=== PATIENT | male | born 1995 | race Caucasian/White ===

== ENCOUNTER 2020-09-30 13:40 | Emergency (ER) | payer OTHER, SELFPAY ==
--- NOTE | ~2020-09-30 | XR_ITS ---
EXAMINATION: XR ANKLE, LEFT CLINICAL INFORMATION: Posterior ankle injury COMPARISON: None TECHNIQUE: AP, lateral, and mortise views of the left ankle. FINDINGS: No radiographic evidence of acute fracture subluxation. The ankle mortise is congruent. Alignment is anatomic. The joint spaces are maintained. Significant soft tissue swelling of the posterior aspect of the lower leg at the level of the distal tibia diaphysis. XR/XR ankle LT min 3V IMPRESSION: No radiographic evidence of acute fracture subluxation. Soft tissue swelling of the soft tissues posterior to the lower leg/ankle.
[2020-09-30 13:43] VITALS: BP 156/77; PULSE 86; RESP 18; TEMP 36.6; O2SAT 98; BMI 33.4
--- NOTE | 2020-09-30 15:11 | ED_ITS ---
HPI - Extremity Injury (Lower) General Chief Complaint: Extremity Injury, Lower Stated Complaint: L FOOT INJ Time Seen by Provider: 09/30/20 14:39 History of Present Illness HPI Narrative: Patient complains of pain over left posterior ankle and Achilles area after playing ball jumping up and down and feeling a pop and sharp pain in the back of his ankle, this happened 2 weeks ago and he has been walking on it since but pain has not been relieved any comes to the ER to get it checked, denies numbness weakness or tingling, no other injury Related Data Previous Rx's Medication Instructions Recorded ibuprofen 600 mg PO Q6H PRN #20 tab 09/30/20 Allergies Allergy/AdvReac Type Severity Reaction Status Date / Time No Known Allergies Allergy Unverified 02/17/20 16:37 Review of Systems Review of Systems: Positive for pain over posterior left ankle Negatives are no dizziness no weakness no headache no chest pain no numbness weakness or tingling no back or neck pain Yes all other systems are reviewed and are negative [facility] Past Medical History Source: nursing notes reviewed Medical History (Updated 09/30/20 @ 15:21 by JASON Aranda) Asthma Social History Social History Advance Directives: No Advance Directives Information Provided: Yes Physical Exam Vital Signs: Vital Signs: Last Vital Signs Temp 97.8 F 09/30/20 13:43 Pulse 86 09/30/20 13:43 Resp 18 09/30/20 13:43 BP 156/77 H 09/30/20 13:43 Pulse Ox 98 09/30/20 13:43 Body Mass Index 33.4 General appearance no acute distress Head is normocephalic atraumatic Neck is supple Respiratory no distress Extremities the left posterior ankle has a palpable defect over the Achilles tendon, patient is able to flex and extend at the ankle joint, Odom test is positive with a normal reflex on the right side and no reflex on the left side Course Course Course Narrative: X-ray did not reveal any obvious fracture, it did show soft tissue swelling over posterior ankle Case was discussed with orthopedic physician physician assistant primary care who will see the patient in the office on Friday and patient was given a boot and crutches and advised nonweightbearing until evaluated by orthopedics Discharge Plan Discharge Clinical Impression: Partial tear of left Achilles tendon Qualifiers: Encounter type: initial encounter Qualified Code(s): S86.012A - Strain of left Achilles tendon, initial encounter Patient Disposition: Home, Self-Care Additional Instructions: I spoke to orthopedic physician physician assistant primary care venessa momin who said she will call you to give you a time for an appointment Friday You should be seen in 2 days, Friday for consideration for possible surgery in orthopedic office If you do call the office make sure you tell them that this was discussed with physician physician assistant primary care merrill who wants to see You this FridayOctober 02 Prescriptions: New ibuprofen 600 mg tablet 600 mg PO Q6H PRN (Reason: pain) Qty: 20 RF: 0 Referrals: Nelson Momin PA-C [Physician Publications Distribution Clerk] - 2 days (Left Achilles tendon tear)
== END 2020-09-30 15:35 | disposition home or self-care (01) ==
PROVIDERS: Emergency Provider Emergency Medicine
DX: S86.012A Strain of left Achilles tendon, initial encounter (principal); M25.572 Pain in left ankle and joints of left foot; Y33.XXXA Other specified events, undetermined intent, initial encounter; Y93.9 Activity, unspecified; Y92.9 Unspecified place or not applicable; Y99.8 Other external cause status
CPT/HCPCS: 73610; 99283

== ENCOUNTER → 2020-10-02 12:18 | Outpatient (BNVA) | payer OTHER, SELFPAY | PROVIDERS: Visit Provider Physician Assistant ==

== ENCOUNTER 2020-10-04 11:56 | Day surgery (SDC) | payer OTHER, SELFPAY ==
--- NOTE | 2020-10-03 09:45 | HO.ANESPROP2 ---
Documented by User: Laura Marcano 10/03/20 09:46 HPI - Anesthesia Eval Consult details Narrative: 24yo M for Left Achilles Tendon Repair PMFSH Active Problems Active Problems: All Active Problems (Updated 10/02/20 @ 20:56 by Nelson Hauser PA-C) Achilles tendon rupture (Acute) Past Medical History Medical History Asthma Social History Social History Alcohol intake: never Smoking Status: Never smoker Use of substances other than those prescribed or required for medical reasons: Yes Substance Use Frequency: Daily Are you DNR?: No Advance Directives: No Advance Directives Information Provided: Yes Gender identity: male Meds Allergies Allergy/AdvReac Type Severity Reaction Status Date / Time No Known Allergies Allergy Verified 10/04/20 12:12 Exam Exam Date and Time: October 03, [id number] Assessment and Plan Assessment Anesthesia Assessment: Chart Reviewed Documented by User: Kinjal Stack 10/04/20 12:56 PMFSH Past Medical History Medical History Asthma Social History Social History Alcohol intake: never Smoking Status: Never smoker Use of substances other than those prescribed or required for medical reasons: Yes Substance Use Frequency: Daily Are you DNR?: No Advance Directives: No Advance Directives Information Provided: Yes Gender identity: male Meds Allergies Allergy/AdvReac Type Severity Reaction Status Date / Time No Known Allergies Allergy Verified 10/04/20 12:12 Exam Airway Mallampati Class: II TM Dist: >3cm Neck ROM: Full Assessment and Plan Assessment Anesthesia Assessment: Anesthesia Plan Discussed and Chart Reviewed Final Anesthetic Review NPO: Yes ASA Class: I Final Preanesthetic Review: No Changes in Pt Med Stat, Meds/Allgs Chart Reviewed, Consent Obtained/Reviewed and Anes Risks/Benef Reviewed Patient Risk: Low Procedure Risk: Low Assessment/Block/Sedation in SS: Assess/Block/Sedation-SS Anesthetic Plan Anesthetic Plan: GA and Regional Block Disposition: Standard PACU
[2020-10-04] VITALS (9 sets, daily range): BP systolic 109–154; BP diastolic 71–100; PULSE 78–108; RESP 16–20; TEMP 36.3–36.6; O2SAT 96–99; BMI 33.4
--- NOTE | 2020-10-04 11:56 | MHC.SHP ---
Pre-Procedural Eval Section A The patient is an INPATIENT: No Changes since office visit: No Cold of Flu in the past 2 weeks, No New Medical Problems, No Changes in Medication and No Patient answered all questions The History & Physical has been completed within 30 days and I have reviewed it.: Yes Section B Chief Complaint: left achilles tendon Allergies: Allergies Allergy/AdvReac Type Severity Reaction Status Date / Time No Known Allergies Allergy Unverified 10/02/20 12:31 Plan I have reviewed the history and physical and performed a pertinent physical examination on my patient. No changes have occurred unless specified.
--- NOTE | 2020-10-04 12:57 | P.CONAN_ITS ---
[facility] Active Problems Active Problems: All Active Problems (Updated 10/02/20 @ 20:56 by Nelson Hauser PA-C) Achilles tendon rupture (Acute) Past Medical History Medical History Asthma Social History Social History Alcohol intake: never Smoking Status: Never smoker Use of substances other than those prescribed or required for medical reasons: Yes Substance Use Frequency: Daily Are you DNR?: No Advance Directives: No Advance Directives Information Provided: Yes Gender identity: male Meds Allergies Allergy/AdvReac Type Severity Reaction Status Date / Time No Known Allergies Allergy Verified 10/04/20 12:12 Active Medications: Current Medications Generic Name Dose Route Start Last Admin Trade Name Freq PRN Reason Stop Dose Admin Lactated Ringer's 1,000 mls @ 100 mls/hr 10/04/20 12:15 Lr IVCONT .Q10H EHSAN Exam Exam Date and Time: October 04, 2020 1257 Height,Weight and Vital Signs: Height 5 ft 8 in Weight 220 kg Last Vital Signs Temp 97.9 F 10/04/20 12:34 Pulse 89 10/04/20 12:34 Resp 16 10/04/20 12:34 BP 133/80 10/04/20 12:34 Pulse Ox 96 10/04/20 12:34 Assessment and Plan Assessment Anesthesia Assessment: Anesthesia Plan Discussed and Chart Reviewed Final Anesthetic Review NPO: Yes ASA Class: I Final Preanesthetic Review: No Changes in Pt Med Stat, Meds/Allgs Chart Reviewed, Consent Obtained/Reviewed and Anes Risks/Benef Reviewed Patient Risk: Low Procedure Risk: Low Assessment/Block/Sedation in SS: Assess/Block/Sedation-SS Anesthetic Plan Anesthetic Plan: GA and Regional Block Disposition: Standard PACU
[2020-10-04] MEDS: Lactated Ringers 1,000 ML 100 ML IVCONT (13:02)
[2020-10-04] MEDS: fentaNYL citrate/PF 100 MCG/2 ML VIAL 50 MCG IVPUSH ×2 (15:18→15:23)
[2020-10-04] MEDS: Acetaminophen 325 MG TABLET 650 MG PO (15:18)
[2020-10-04] MEDS: oxyCODONE HCl Immed Release 5 MG TABLET PO (15:18)
--- NOTE | 2020-10-05 10:18 | P.OP_ITS ---
Operative Note Operative Note Date of Service: 10/05/20 Narrative: OPERATIVE PROCEDURE NOTE SURGEON: Dr. Gomes (Jovana) Instrum [employer] DEVELOPER: Eva Kitchen PAC PREOP DIAGNOSIS: Left Achilles tendon rupture POSTOP DIAGNOSIS: Same OPERATIVE PROCEDURE: LEFT ACHILLES TENDON REPAIR CLINICAL NOTE: This young man comes in today in regards to his left Achilles tendon. He injured it playing basketball over 2 weeks ago. He initially did not seek any medical attention. He decided he would read up on it . However subsequently he did present where the above noted injury was found. Therefore after explaining risks benefits and alternatives and answering all his questions it was mutually agreed upon to carry the following procedure OPERATIVE PROCEDURE Under a regional and general anesthetic the patient was initially supine and then rolled into the prone position. The left leg had a pneumatic tourniquet cuff placed around the upper left thigh which was inflated to 300 mm of mercury at the beginning of the case. The left foot and ankle was then prepped and draped in standard fashion. Surgical time-out was then performed. The patient is identified. procedure confirmed. Site confirmed. Medical and allergy history was reviewed. Preoperative antibiotics was given. Standard DVT prophylaxis was in place. All other items discussed and agreed upon. Standard posterior approach to the Achilles tendon was carried out. This was carried down through subcutaneous tissues with hemostasis achieved along the way using electrocautery. The peretenon was divided. The rupture was identified. It occurred the lower segment. Proximally the tendon was identified. It was scarred down. It had to be released significantly in order to try to bring the ends together. There was some shortening already. Both ends then had a 2. FiberWire suture weaved through it in a Bunnel fashion. Two suture ends were available on both the proximal and distal portions. With the foot in plantar flexion the matching Andreina's were tied together securely. This brought the tendon together. However there was tension in the repair and the foot remained at approximately 10-15 degrees of plantar flexion. Following this multiple#1 Dexon sutures were used to reinforce the repair. At this point it had been successfully repaired and therefore proceeded to closure. Wound was thoroughly irrigated. Peretenon and skin were approximated using 2-0 polysorb. The skin was closed with subcuticular V lock suture. Dermabond Steri-Strips to use. A sterile dressing was then applied. The tourniquet was let down total tourniquet time of 45 minutes. The foot was then placed in a below knee nonweightbearing cast with the foot at the resting plantar flexed position. Intraoperatively there was less than 10 cc blood loss no intraop transfusions complications.
== END 2020-10-04 16:15 | disposition home or self-care (01) ==
PROVIDERS: Visit Provider Orthopaedic Surgery
PROC: (CPT 27650; principal; 2020-10-04 13:40)
DX: S86.012A Strain of left Achilles tendon, initial encounter (principal); X58.XXXA Exposure to other specified factors, initial encounter; Y93.67 Activity, basketball; Y92.9 Unspecified place or not applicable; Y99.8 Other external cause status
CPT/HCPCS: 27650; J0690; J1885; J2250; J3010

== ENCOUNTER → 2020-10-13 13:02 | Outpatient (BNVA) | payer OTHER, SELFPAY | PROVIDERS: Visit Provider Physician Assistant ==

== ENCOUNTER → 2020-11-08 13:59 | Outpatient (BNVA) | payer OTHER, SELFPAY | PROVIDERS: Visit Provider Physician Assistant ==

== ENCOUNTER → 2021-01-02 12:42 | Outpatient (BNVA) | payer OTHER, SELFPAY | PROVIDERS: Visit Provider Orthopaedic Surgery | DX: Z98.890 Other specified postprocedural states (principal) | CPT/HCPCS: 99212 ==

== ENCOUNTER 2021-02-24 02:52 | Emergency (ER) | payer OTHER, SELFPAY ==
[2021-02-24 03:44] VITALS: BP 111/60; PULSE 116; RESP 16; TEMP 36.1; O2SAT 99; BMI 34.2
[2021-02-24 05:24] VITALS: BP 129/71; PULSE 87; RESP 18; TEMP 36.8; O2SAT 97
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
[2021-02-24 07:24] VITALS: BP 146/83; PULSE 78; RESP 16; TEMP 36.8; O2SAT 98
== END 2021-02-24 07:32 | disposition home or self-care (01) ==
PROVIDERS: Emergency Provider Emergency Medicine Emergency Medical Services
DX: S00.93XA Contusion of unspecified part of head, initial encounter (principal); G44.309 Post-traumatic headache, unspecified, not intractable; Y04.8XXA Assault by other bodily force, initial encounter; Y93.9 Activity, unspecified; Y92.410 Unspecified street and highway as the place of occurrence of the external cause; Y99.9 Unspecified external cause status; Z79.899 Other long term (current) drug therapy
CPT/HCPCS: 99283; 99284

== ENCOUNTER 2022-03-15 13:10 | Emergency (ER) | payer OTHER, SELFPAY ==
[2022-03-15 14:59] VITALS: BP 150/82; PULSE 113; RESP 18; TEMP 39.4; O2SAT 95; BMI 34.2
[2022-03-15] MEDS: Acetaminophen 325 MG TABLET 650 MG PO (15:04)
[2022-03-15 15:30] LABS: COVID-19 Test Negative (Negative); IDNOW Serial# 16C4AD1C; Influenza A Negative (Negative); Influenza B2 Negative (Negative)
[2022-03-15 16:09] VITALS: BP 119/73; PULSE 104; RESP 18; TEMP 37.7; O2SAT 95
--- NOTE | 2022-03-15 16:45 | ED.GENADULT ---
HPI - General Adult General Chief complaint: Fever Stated complaint: fever for few days Time Seen by Provider: 03/15/22 16:45 Source: patient Mode of arrival: ambulatory Limitations: no limitations History of Present Illness HPI narrative: Patient is a 26 year old assigned male at with no reported medical history presenting to the emergency department today with a cough and feeling generally unwell. Patient states that for the last couple days he has had a fever and a cough. Patient denies any dizziness, lightheadedness, abdominal pain, nausea, vomiting, chills, blurry vision, double vision, loss of vision, chest pain, difficulty breathing, shortness of breath, back pain, night sweats, pain with urination, increased urinary frequency, increased urinary urgency, blood in his urine or stool, syncope or a near syncopal episode, recent trauma or falls, bowel incontinence, bladder incontinence, bowel retention, bladder retention, or any other complaints at this time. Onset (ago): day(s) (2) Radiation: non-radiation Severity: mild Severity scale (1-10): 3 Relieving factors: none Exacerbating factors: none Associated symptoms: fever/chills Treatments prior to arrival: none Related Data Previous Rx's Medication Instructions Recorded ibuprofen 600 mg tablet 600 mg PO Q6H PRN pain #20 tabs 09/30/20 oxycodone-acetaminophen 5 mg-325 1 tab PO Q6H PRN pain 7 days #42 10/04/20 mg tablet (Percocet) tabs penicillin V potassium 500 mg 500 mg PO BID 10 days #20 tabs 03/15/22 tablet Allergies Allergy/AdvReac Type Severity Reaction Status Date / Time No Known Allergies Allergy Verified 03/15/22 14:57 Review of Systems Constitutional: Constitutional: Reports no additional constitutional complaints, Denies chills, Reports fever(s) and Denies night sweats Eyes: Eyes: Reports no additional eye complaints, Denies blurry vision, Denies change in vision, Denies diplopia, Denies eye discharge, Denies loss of vision and Denies eye pain ENT: Denies dizziness Cardiovascular: Cardiovascular: Reports no additional cardiovascular complaints, Denies chest pain, Denies lightheadedness, Denies Loss of Consciousness and Denies dyspnea Respiratory: Respiratory: Reports no additional respiratory complaints, Reports cough and Denies dyspnea Gastrointestinal: Gastrointestinal: Reports no additional gastrointestinal complaints, Denies abdominal pain, Denies melena, Denies hematochezia, Denies change in bowel habits and Denies change in stool character Genitourinary: Genitourinary: Reports no additional male genitourinary complaints, Denies hematuria, Denies oliguria, Denies difficulty urinating, Denies dysuria, Denies urinary frequency, Denies urinary hesitancy, Denies urinary incontinence and Denies urinary urgency Musculoskeletal: Musculoskeletal: Reports no additional musculoskeletal complaints, Denies numbness and Denies tingling Neurologic: Denies dizziness, Denies loss of vision, Denies numbness and Denies tingling Psychiatric: Psychiatric: Reports no additional psychiatric complaints Endocrine: Endocrine: Reports no additional endocrine complaints Hematologic/Lymphatic: Hematologic/Lymphatic: Reports no additional hematologic/lymphatic complaints Allergic/Immunologic: Allergic/Immunologic: Reports no additional allergic/immunologic complaints PMFSH Past Medical History Attestation statement: The following information was validated with the patient. Source: old records reviewed Medical History Asthma Social History Social History Alcohol intake: never Patient Tobacco Use Status: Never used Tobacco Advance Directives: No Advance Directives Information Provided: No Current occupational status: employed Current occupation: RT [employer] Gender identity: Male Physical Exam ED Vital Signs: Vital Signs - 24 hr 03/15/22 14:59 03/15/22 16:09 Temperature 102.9 F H 99.8 F Pulse Rate 113 H 104 H Respiratory Rate 18 18 Blood Pressure 150/82 H 119/73 Pulse Oximetry 95 95 Oxygen Delivery Method Room Air Room Air BMI result Body Mass Index 34.2 Const General: cooperative, no acute distress, alert and awake Nutritional Appearance: well nourished Orientation/consciousness: patient oriented x3 Limitations: no limitations HENMT Head: Yes normal to inspection and Yes atraumatic Ears: hearing grossly normal bilaterally and external ears normal General nose exam: Normal external nose present, no nasal discharge noted and no epistaxis Face and sinus: Yes normal facial exam, No abrasion and No laceration Mouth: Normal oral and palatal mucosa present, no drooling and no muffled voice Throat: Yes other (mild erythema to posterior pharynx) Eyes General: appearance normal, both eyes and all related structures Periorbital: periorbital findings normal Eyelids: Yes eyelids normal Conjunctivae: conjunctivae normal Pupils: Equal, round and reactive pupils present EOM: EOMs intact bilaterally Neck Neck: Yes normal visual inspection, Yes full ROM and Yes no lymphadenopathy Chest Chest palpation & inspection: normal inspection of the chest Resp Effort & Inspection: normal respiratory effort and able to speak in complete sentences Auscultation: clear to auscultation bilaterally Cardio Rate: regular rate Rhythm: regular rhythm GI Inspection: Yes normal to inspection Neuro General: patient oriented x3 and moves all extremities Cranial nerves: Yes Equal, round and reactive pupils present Cognition (Neuro): normal cognition Motor exam (neuro): 5/5 motor strength present throughout Sensory Exam: Normal double simultaneous stimulation for sensation Coordination: [id number] test normal Extrem General: Yes normal to inspection, Yes full ROM and Yes capillary refill normal Psych Appearance: grossly normal Mental Status: mental status grossly normal Affect: normal affect Attitude: cooperative Thought process: Normal thought process present Thought content: Normal thought content present Insight: Good insight present (Psych) Medical Decision Making [facility] Narrative Medical decision making narrative: Patient is a 26 year old assigned male at with no reported medical history presenting to the emergency department today with a fever and a cough. Patient's physical exam showed mild erythema of the posterior pharynx. Patient's COVID-19 test was positive. I explained my physical exam findings as well as all test results to the patient. I answered all questions asked by the patient. I stressed the importance of the patient taking his medication as prescribed. I stressed the importance of the patient following up with his primary care provider. I stressed the importance of the patient returning to the emergency department immediately if his symptoms were to worsen or if he were to develop any dizziness, shortness of breath, difficulty breathing, chest pain, blurry vision, loss of vision, nausea, vomiting, abdominal pain, fever, chills, back pain, or any other complaints. Patient verbalized agreement and understanding with this treatment plan and discharge. Medical Records Medical records reviewed: Yes I reviewed the patient's medical records. Lab Data Lab results reviewed: Yes I reviewed the patient's lab results. Labs: Lab Results 03/15/22 03/15/22 03/15/22 Range/Units 15:06 15:06 16:11 COVID-19 (ITZ) Negative (Negative) COVID-19 Clin Com See Note Influenza Type A (HARDIK) Negative (Negative) Influenza Type A (PCR) NEGATIVE (Negative) Influenza Type B (HARDIK) Negative (Negative) Influenza Type B (PCR) NEGATIVE (Negative) Influenza A & B Note See Note RSV RNA Qual (PCR) NEGATIVE (Negative) SARS-CoV-2 RNA (RT-PCR) POSITIVE A (Negative) Discharge Plan Discharge Clinical Impression: Pharyngitis, COVID-19 Patient Disposition: Home, Self-Care Instructions: Pharyngitis (ED), COVID-19 (Coronavirus Disease 2019) (ED) Additional Instructions: Follow up with your primary care provider. Return to the emergency department immediately if your symptoms worsen or if you develop any dizziness, shortness of breath, difficulty breathing, chest pain, blurry vision, loss of vision, nausea, vomiting, abdominal pain, fever, chills, back pain, or any other complaints. Prescriptions: New penicillin V potassium 500 mg tablet 500 mg PO BID 10 Days Qty: 20 0RF No Action ibuprofen 600 mg tablet 600 mg PO Q6H PRN (Reason: pain) Qty: 20 0RF oxycodone-acetaminophen [Percocet] 5-325 mg tablet 1 tab PO Q6H PRN (Reason: pain) 7 Days Qty: 42 0RF Referrals: [facility] [place] Family Medicine [Provider Group] (Call to establish and follow up with a primary care provider. If you already have a primary care provider, please follow up with them. ) [facility] [place] Primary Care[facility] [Provider Group] (Call to establish and follow up with a primary care provider. If you already have a primary care provider, please follow up with them. ) [facility] [place] Primary Care,Sal [Provider Group] (Call to establish and follow up with a primary care provider. If you already have a primary care provider, please follow up with them. ) Stand Alone Forms: Work/School Release Interventions: ED Discharge Assessment Last Done: 03/15/22 17:06 Discharge Date/Time: 03/15/22 17:07 Print Language: Portuguese
[2022-03-15 16:58] LABS: Influenza A PCR NEGATIVE (Negative); Influenza B PCR NEGATIVE (Negative); Resp Syncy Virus RNA Qual PCR NEGATIVE (Negative); SARS COV2 PCR INHOUSE POSITIVE (Negative)
[2022-03-15] MEDS: Ibuprofen 400 MG TABLET PO (16:59)
--- NOTE | 2022-03-15 17:05 | PC.NURSE ---
called pt advised pt is covid (+) advised pt to take abx as prescribed for his throat, work note will cover through state/federal quarantine guidelines. no answer on cell # left message to call with any questions
== END 2022-03-15 17:07 | disposition home or self-care (01) ==
PROVIDERS: Emergency Provider Emergency Medicine Emergency Medical Services
DX: J02.9 Acute pharyngitis, unspecified (principal); U07.1 COVID-19; R50.9 Fever, unspecified
CPT/HCPCS: 0241U; 87502; 87635; 99283

== ENCOUNTER 2022-03-18 07:24 | Emergency (ER) | payer OTHER, SELFPAY ==
[2022-03-18 07:28] VITALS: BP 140/77; PULSE 95; RESP 16; TEMP 37; O2SAT 97; BMI 34.2
--- NOTE | 2022-03-18 08:27 | ED.GENADULT ---
HPI - General Adult General Chief complaint: Upper Respiratory Symptoms Stated complaint: Sore throat/antibiotics not working Time Seen by Provider: 03/18/22 08:00 Source: patient Mode of arrival: ambulatory History of Present Illness HPI narrative: 26-year-old male with past medical history of asthma, COVID-19 positive on 03/15, presenting to the ED complaining of continued sore throat, ear pain, decreased p.o. intake, and myalgias x couple days. Patient was seen and treated in our ED on 03/15 for similar symptoms, diagnosed with COVID-19 at that time and pharyngitis prescribed penicillin V. Patient admits he started antibiotics on Friday however does not feel any improvement. Reports subjective fever. Denies chills, abdominal pain, nausea, vomiting, recent travel, cough, SOB, CP Onset (ago): day(s) Related Data Previous Rx's Medication Instructions Recorded ibuprofen 600 mg tablet 600 mg PO Q6H PRN pain #20 tabs 09/30/20 oxycodone-acetaminophen 5 mg-325 1 tab PO Q6H PRN pain 7 days #42 10/04/20 mg tablet (Percocet) tabs penicillin V potassium 500 mg 500 mg PO BID 10 days #20 tabs 03/15/22 tablet ketorolac 10 mg tablet 10 mg PO TID PRN pain 5 days #15 03/18/22 tabs lidocaine HCl 2 % mucosal solution 5 ml mucous membrane BID PRN pain 03/18/22 (Lidocaine Viscous) #100 mL Allergies Allergy/AdvReac Type Severity Reaction Status Date / Time No Known Allergies Allergy Verified 03/15/22 14:57 Review of Systems Review of Systems: Constitutional: +Fever, No Chills, No Fatigue, No Malaise ENT/Mouth: No Hearing loss, + Ear Pain, + Nasal Congestion, No Sinus Pain, No Hoarseness, + sore throat, No Rhinorrhea, + Swallowing Difficulty Eyes: No Eye Pain, No Swelling, No Vision Changes Cardiovascular: No Chest Pain, No SOB, No Dyspnea on Exertion, No Orthopnea, No Edema, No Palpitations Respiratory: No Cough, No Sputum, No Wheezing, No Dyspnea Gastrointestinal: No Nausea, No Vomiting, No Diarrhea, No Constipation, No Abdominal pain Genitourinary: No irregular bleeding, No Dysuria, No Urinary Frequency, No Hematuria, No Flank Pain Musculoskeletal: No joint pain, + Myalgias, No Joint Swelling Skin: No Skin Lesions, No rash Neuro: No Weakness, No Numbness, No Dizziness, No Headache Yes all other systems are reviewed and are negative Constitutional: Constitutional: Reports as per [facility] Past Medical History Attestation statement: The following information was validated with the patient. Medical History Asthma Social History Social History Alcohol intake: never Patient Tobacco Use Status: Never used Tobacco Advance Directives: No Advance Directives Information Provided: Yes Current occupational status: employed Current occupation: [email or web address] Gender identity: Male Physical Exam ED Vital Signs: Vital Signs - 24 hr 03/18/22 07:28 Temperature 98.6 F Pulse Rate 95 Respiratory Rate 16 Blood Pressure 140/77 H Pulse Oximetry 97 Oxygen Delivery Method Room Air BMI result Body Mass Index 34.2 Const General: cooperative, healthy appearing and no acute distress Orientation/consciousness: patient oriented x3 Limitations: no limitations HENMT Head: Yes normal to inspection and Yes atraumatic Ears: hearing grossly normal bilaterally, external ears normal and TM's normal bilaterally General nose exam: Normal external nose present Face and sinus: Yes normal facial exam Throat: No peritonsillar mass, Yes posterior oropharynx abnormal (+ posterior or pharyngeal erythema and exudates. No muffled voice) and No uvula laterally displaced Eyes General: appearance normal, both eyes and all related structures EOM: EOMs intact bilaterally Neck Other: + submandibular lymphadenopathy Neck: Yes normal visual inspection, Yes no meningeal signs, Yes supple and No anterior neck swelling Resp Effort & Inspection: normal respiratory effort and no respiratory distress Auscultation: clear to auscultation bilaterally, no crackles, no rales, no rhonchi and no wheezes Cardio Rate: regular rate Heart sounds: S1 normal heart sound present and S2 normal heart sound present Skin Rashes: no rashes Wounds: no wounds Neuro General: patient oriented x3, tone normal and no meningeal signs Gait exam (Neuro): Normal gait present Extrem General: Yes normal to inspection Course Course Course Narrative: -labs unremarkable -rapid strep negative, however clinically patient with strep pharyngitis. -1004--on re-evaluation patient reports symptomatic improvement after p.o. medications given in the ED. Tolerated p.o. without difficulty. Plan to DC home, recommending continuation of previously prescribed antibiotics Results discussed with patient including worrisome signs and symptoms and strict return precautions, and when to return to the emergency department. They verbalized understanding and feel safe for discharge at this time. Medical Decision Making MDM Narrative Medical decision making narrative: 26-year-old male with past medical history of asthma, COVID-19 positive on 03/15, presenting to the ED complaining of continued sore throat, ear pain, decreased p.o. intake, and myalgias x couple days. On exam vital signs stable, NAD, nontoxic appearing, physical exam as above with posterior or pharyngeal erythema and tonsillar exudates. No muffled voice or evidence of [employer], lungs CTA. Concern for continued COVID-19 symptoms and pharyngitis. Rule dehydration/metabolic abnormalities. Low suspicion for ACS/PE Plan: Labs, UA, rapid strep, IVF, symptomatic treatment, p.o. challenge, re-evaluate Medical Records Medical records reviewed: Yes I reviewed the patient's medical records. Lab Data Lab results reviewed: Yes I reviewed the patient's lab results. Result diagrams: 03/18/22 08:34 03/18/22 08:34 Labs: Lab Results 03/18/22 03/18/22 03/18/22 Range/Units 08:34 08:34 08:34 WBC 7.4 (4.8-10.8) X10*3/uL RBC 5.86 H (4.60-5.80) X10*6/uL Hgb 16.7 (14.0-18.0) g/dl Hct 49.7 (42.0-52.0) % MCV 84.8 (80.0-98.0) fL MCH 28.5 (27.0-33.0) pg MCHC 33.6 (31.0-36.0) g/dl RDW 12.9 (11.0-16.0) % Plt Count 264 (160-400) X10*3/uL MPV 9.9 (9.4-12.4) fL Immature Gran % (Auto) 0.3 (0.0-0.4) % Neut % (Auto) 66.7 (45-73) % Lymph % (Auto) 19.9 L (20-40) % Guthrie % (Auto) 12.3 H (2-11) % Eos % (Auto) 0.3 (0-4) % Baso % (Auto) 0.5 (0-2) % Lymph # (Auto) 1.5 (1.2-4.9) X10*3/uL Guthrie # (Auto) 0.9 (0.1-1.2) X10*3/uL Eos # (Auto) 0.0 (0.0-0.4) X10*3/uL Baso # (Auto) 0.0 (0.0-0.2) X10*3/uL Abs Immat Gran (auto) 0.02 (0.00-0.03) X10*3/uL Absolute Neuts (auto) 5.0 (2.0-8.3) x10*3/uL Absolute Nucleated RBC 0.000 (0.0-0.012) X10*3/uL Nucleated RBC % (auto) 0.0 (0.0-0.2) /100WBC Smear Tech's Comments VERIFIED Sodium 139 (135-145) mmol/L Potassium 4.6 (3.3-5.1) mmol/L Chloride 100 (96-108) mmol/L Carbon Dioxide 25 (22-29) mmol/L Anion Gap 19 (12-20) BUN 10 (9-16) mg/dL Creatinine 0.91 (0.5-1.4) mg/dL Estim Creat Clear Calc 144.9 Estimated GFR > 60 Random Glucose 91 (60-115) mg/dL Calcium 9.4 (8.4-10.2) mg/dL Magnesium 2.2 (1.6-2.6) mg/dL Total Bilirubin 0.5 (0.0-1.0) mg/dL Direct Bilirubin 0.2 (0.0-0.5) mg/dL AST 16 (5-37) U/L ALT 34 (0-40) U/L Alkaline Phosphatase 53 (39-117) U/L Total Protein 7.9 (6.5-8.0) g/dL Albumin 4.6 (3.5-5.0) g/dL S. pyogenes GrpA HARDIK Invalid (Negative) 10/17/22 Range/Units 09:13 WBC (4.8-10.8) X10*3/uL RBC (4.60-5.80) X10*6/uL Hgb (14.0-18.0) g/dl Hct (42.0-52.0) % MCV (80.0-98.0) fL MCH (27.0-33.0) pg MCHC (31.0-36.0) g/dl RDW (11.0-16.0) % Plt Count (160-400) X10*3/uL MPV (9.4-12.4) fL Immature Gran % (Auto) (0.0-0.4) % Neut % (Auto) (45-73) % Lymph % (Auto) (20-40) % Guthrie % (Auto) (2-11) % Eos % (Auto) (0-4) % Baso % (Auto) (0-2) % Lymph # (Auto) (1.2-4.9) X10*3/uL Guthrie # (Auto) (0.1-1.2) X10*3/uL Eos # (Auto) (0.0-0.4) X10*3/uL Baso # (Auto) (0.0-0.2) X10*3/uL Abs Immat Gran (auto) (0.00-0.03) X10*3/uL Absolute Neuts (auto) (2.0-8.3) x10*3/uL Absolute Nucleated RBC (0.0-0.012) X10*3/uL Nucleated RBC % (auto) (0.0-0.2) /100WBC Smear Tech's Comments Sodium (135-145) mmol/L Potassium (3.3-5.1) mmol/L Chloride (96-108) mmol/L Carbon Dioxide (22-29) mmol/L Anion Gap (12-20) BUN (9-16) mg/dL Creatinine (0.5-1.4) mg/dL Estim Creat Clear Calc Estimated GFR Random Glucose (60-115) mg/dL Calcium (8.4-10.2) mg/dL Magnesium (1.6-2.6) mg/dL Total Bilirubin (0.0-1.0) mg/dL Direct Bilirubin (0.0-0.5) mg/dL AST (5-37) U/L ALT (0-40) U/L Alkaline Phosphatase (39-117) U/L Total Protein (6.5-8.0) g/dL Albumin (3.5-5.0) g/dL S. pyogenes GrpA HARDIK Negative (Negative) Discharge Plan Discharge Clinical Impression: Acute pharyngitis, COVID-19 Patient Disposition: Home, Self-Care Instructions: Pharyngitis (ED), COVID-19 (Coronavirus Disease 2019) (ED) Additional Instructions: Your blood work was reassuring Continue taking previously prescribed antibiotic, lidocaine will help with pain, take as needed. Additionally Toradol is anti-inflammatory/pain medication, take with food Please see hydrated Practice bland diet Continue to self isolate. Rest. If symptoms persist or worsen, he develops high fever, you are unable to eat or drink please return to the emergency department Prescriptions: New lidocaine HCl [Lidocaine Viscous] 2 % solution 5 ml mucous membrane BID PRN (Reason: pain) Qty: 100 0RF ketorolac 10 mg tablet 10 mg PO TID PRN (Reason: pain) 5 Days Qty: 15 0RF No Action ibuprofen 600 mg tablet 600 mg PO Q6H PRN (Reason: pain) Qty: 20 0RF oxycodone-acetaminophen [Percocet] 5-325 mg tablet 1 tab PO Q6H PRN (Reason: pain) 7 Days Qty: 42 0RF penicillin V potassium 500 mg tablet 500 mg PO BID 10 Days Qty: 20 0RF Referrals: Physician,None [Primary Care Provider] - 1 week Stand Alone Forms: Work/School Release
[2022-03-18] MEDS: 0.9 % Sodium Chloride 1,000 ML 999 ML IV (08:36)
[2022-03-18] MEDS: Famotidine/PF 20 MG/2 ML VIAL IVPUSH (08:46)
[2022-03-18] MEDS: dexAMETHasone sod phosphate 10 MG/ML VIAL IVPUSH (08:46)
[2022-03-18] MEDS: Lidocaine HCl Viscous 2 % 15 ML SOLUTION 5 ML MUCOUS MEM (08:46)
[2022-03-18] MEDS: Magnesium Hydrox/Alum Hydrox 30 ML ORAL.SUSP PO (08:46)
[2022-03-18] MEDS: Ketorolac Tromethamine 15 MG/ML VIAL IVPUSH (08:50)
[2022-03-18 08:53] LABS: Basophils Percent Auto 0.5 % (0-2); Eosinophils Percent Auto 0.3 % (0-4); Hematocrit 49.7 % (42.0-52.0); Hemoglobin 16.7 g/dl (14.0-18.0); Imm Gran Abs Auto 0.02 X10*3/uL (0.00-0.03); Imm Gran Pct Auto 0.3 % (0.0-0.4); Lymphocytes Absolute Auto 1.5 X10*3/uL (1.2-4.9); Lymphocytes Percent Auto 19.9 % (20-40); MANUAL DIFF FLAG SCAN; Mean Corpuscular HGB Conc 33.6 g/dl (31.0-36.0); Mean Corpuscular Hemoglobin 28.5 pg (27.0-33.0); Mean Corpuscular Volume 84.8 fL (80.0-98.0); Mean Platelet Volume 9.9 fL (9.4-12.4); Monocytes Absolute Auto 0.9 X10*3/uL (0.1-1.2); Monocytes Percent Auto 12.3 % (2-11); Neutrophils Percent Auto 66.7 % (45-73); Platelet Count 264 X10*3/uL (160-400); Red Blood Count 5.86 X10*6/uL (4.60-5.80); Red Cell Distribution Width 12.9 % (11.0-16.0); SCAN SMEAR FLAG 1; White Blood Count 7.4 X10*3/uL (4.8-10.8)
[2022-03-18 09:04] LABS: Strep A Nucleic Acid Invalid (Negative)
[2022-03-18 09:14] LABS: SLIDE REVIEW VERIFIED
[2022-03-18 09:16] LABS: Alanine Aminotransferase 34 U/L (0-40); Albumin Level 4.6 g/dL (3.5-5.0); Alkaline Phosphatase 53 U/L (39-117); Anion Gap 19 (12-20); Aspartate Amino Transferase 16 U/L (5-37); Bilirubin Direct 0.2 mg/dL (0.0-0.5); Bilirubin Total 0.5 mg/dL (0.0-1.0); Blood Urea Nitrogen 10 mg/dL (9-16); Calcium 9.4 mg/dL (8.4-10.2); Carbon Dioxide 25 mmol/L (22-29); Chloride 100 mmol/L (96-108); Creatinine Clr Calc Pharmacy 144.9; Estimated Glomerular Filt Rate > 60; Glucose Random 91 mg/dL (60-115); Magnesium 2.2 mg/dL (1.6-2.6); Potassium 4.6 mmol/L (3.3-5.1); Sodium 139 mmol/L (135-145); Total Protein 7.9 g/dL (6.5-8.0)
[2022-03-18 09:47] LABS: IDNOW Serial# 08D9AD1C; Strep A Nucleic Acid Negative (Negative)
--- NOTE | 2022-03-18 10:04 | PC.NURSE ---
pt given water and crackers by mouth, he reports mild discomfort when he swallows. no difficulty swallowing observed/reported.
== END 2022-03-18 10:34 | disposition home or self-care (01) ==
PROVIDERS: Physician Assistant; Emergency Provider Emergency Medicine
DX: U07.1 COVID-19 (principal); J02.9 Acute pharyngitis, unspecified
CPT/HCPCS: 36415; 80048; 80076; 83735; 85025; 87651; 96361; 96374; 96375; 99284; J1100; J1885

== ENCOUNTER 2023-06-16 07:19 | Emergency (ER) | payer OTHER, SELFPAY ==
[2023-06-16 07:21] VITALS: BP 141/70; PULSE 78; RESP 18; TEMP 36.4; O2SAT 98; BMI 34.0
--- NOTE | 2023-06-16 08:25 | ED.DENTAL ---
HPI - Dental/Oral General Chief complaint: Dental/Oral Stated complaint: dental pain facial swelling Time Seen by Provider: 06/16/23 08:09 Source: patient Mode of arrival: ambulatory Limitations: no limitations History of Present Illness HPI Narrative: 27-year-old male came in for dental pain and left facial swelling. Patient have widespread decay and problem with his left upper molar teeth, patient is afraid of dentist that he developed photophobia at the clinics made an appointment for next Friday with a dentist, complaining of left facial swelling but no pain currently. Related Data Previous Rx's Medication Instructions Recorded ibuprofen 600 mg tablet 600 mg PO Q6H PRN pain #20 tabs 09/30/20 oxycodone-acetaminophen 5 mg-325 1 tab PO Q6H PRN pain 7 days #42 10/04/20 mg tablet (Percocet) tabs penicillin V potassium 500 mg 500 mg PO BID 10 days #20 tabs 03/15/22 tablet ketorolac 10 mg tablet 10 mg PO TID PRN pain 5 days #15 03/18/22 tabs lidocaine HCl 2 % mucosal solution 5 ml mucous membrane BID PRN pain 03/18/22 (Lidocaine Viscous) #100 mL amoxicillin 875 mg-potassium 1 tab PO Q12H #14 tabs 06/16/23 clavulanate 125 mg tablet Allergies Allergy/AdvReac Type Severity Reaction Status Date / Time No Known Allergies Allergy Verified 06/16/23 07:25 Review of Systems Review of Systems: All other systems are reviewed and are negative Constitutional: Reports as per HPI and Reports no additional constitutional complaints Eyes: Reports as per HPI and Reports no additional eye complaints Reports system reviewed and no additional complaints, except as documented Cardiovascular: Reports as per HPI and Reports no additional cardiovascular complaints Respiratory: Reports as per HPI and Reports no additional respiratory complaints Gastrointestinal: Reports as per HPI and Reports no additional gastrointestinal complaints Genitourinary: Reports no additional female genitourinary complaints Musculoskeletal: Reports no additional musculoskeletal complaints Skin/Breast: Reports system reviewed and no additional complaints, except as docu Psychiatric: Reports no additional psychiatric complaints Endocrine: Reports no additional endocrine complaints Hematologic/Lymphatic: Reports no additional hematologic/lymphatic complaints Allergic/Immunologic: Reports no additional allergic/immunologic complaints Reports system reviewed and no additional complaints, except as documented and Reports Abnormal speech present PMFSH Past Medical History Onset Date is defined in the Problem List Problems that require an onset date and time if occurred within 24 hrs of arrival to the ED Aortic Dissection and Rupture; Neurologic impairment; Cardiopulmonary Arrest; Endotracheal Intubation; Insertion or Replacement of Mechanical Circulatory Assist Device Medical History Asthma Social History Social History Alcohol intake: never Patient Tobacco Use Status: Never used Tobacco Current occupational status: employed Current occupation: [employer] Gender identity: Male Physical Exam Vital Signs: Vital Signs: Last Vital Signs Temp 97.6 F 06/16/23 07:21 Pulse 78 06/16/23 07:21 Resp 18 06/16/23 07:21 BP 141/70 H 06/16/23 07:21 Pulse Ox 98 06/16/23 07:21 O2 Del Method Room Air 06/16/23 07:21 BMI result Body Mass Index 34.0 Vital signs have been reviewed and appear to be correct. Blood pressure elevated. Heart rate normal. Respiratory rate normal. Temperature normal. Oxygen saturation normal. Appearance: Alert. Oriented X3. No acute distress. Head: Normal external exam. Normocephalic. Atraumatic. No Rao signs noted. No raccoon eyes noted. Dental exam: Left cheek slight swollen, broken and decayed 3 upper left molar teeth, no gum swelling or fluctuation is appreciated. Eyes: PERRLA. EOMI. Conjunctiva and sclera normal. Eyelids normal. ENT: TM's Normal. Pharynx normal. Uvula midline. Moist mucous membranes. No trismus noted. No drooling noted. No muffled voice noted. Neck: Normal inspection. Neck supple. FROM. No adenopathy. Thyroid Normal. No meningeal signs. No neck mass noted. CVS: Normal heart rate and rhythm. Heart sound normal. No murmurs noted. Pulses normal throughout. Respiratory: No respiratory distress. Painless inspiration. Breath sounds normal. No wheezes/rales/rhonchi noted. Chest nontender. No accessory muscle usage noted or decreased air movement noted. Abdomen: Soft and nontender. Bowel sounds normal in all 4 quadrants. No distention noted. No organomegaly noted. No visible injury noted. Back: No CVA tenderness. Full range of motion noted. Skin: Skin warm and dry. Normal skin color. Normal skin turgor. No rashes/lesions/lacerations noted. Extremities: No lower extremity edema. Extremities exhibit normal range of motion. Extremities nontender. Neuro: Oriented X 3. Cranial nerve exam: II-XII are grossly intact No motor deficit. No sensory deficit. Reflexes normal. Course Reevaluation(s) Reevaluation #1: Left facial cellulitis without discrete dental abscess due to dental source. Patient having a dental appointment next week will start the patient on Augmentin. Time: 08:29 Medical Decision Making Differential Diagnosis Differential Diagnoses: The differential diagnosis associated with the presentation includes (Facial cellulitis, dental abscess, gingivitis, sinusitis.) Admission/Observation Consideration of admission/observation: Escalation of care including admission/observation considered Discharge Plan Discharge Clinical Impression: Dental caries, Cellulitis of face Patient Disposition: Home, Self-Care Instructions: Cellulitis (ED) Prescriptions: New amoxicillin-pot clavulanate 875-125 mg tablet 1 tab PO Q12H Qty: 14 0RF No Action ibuprofen 600 mg tablet 600 mg PO Q6H PRN (Reason: pain) Qty: 20 0RF oxycodone-acetaminophen [Percocet] 5-325 mg tablet 1 tab PO Q6H PRN (Reason: pain) 7 Days Qty: 42 0RF penicillin V potassium 500 mg tablet 500 mg PO BID 10 Days Qty: 20 0RF lidocaine HCl [Lidocaine Viscous] 2 % solution 5 ml mucous membrane BID PRN (Reason: pain) Qty: 100 0RF ketorolac 10 mg tablet 10 mg PO TID PRN (Reason: pain) 5 Days Qty: 15 0RF Stand Alone Forms: Work/School Release
[2023-06-16] MEDS: Amoxicillin/Potassium Clav 875 MG TABLET PO (08:49)
== END 2023-06-16 10:10 | disposition home or self-care (01) ==
PROVIDERS: Emergency Provider Emergency Medicine
DX: K02.9 Dental caries, unspecified (principal); K12.2 Cellulitis and abscess of mouth
CPT/HCPCS: 99282; 99283